=== PATIENT | female | born 1985 | race Caucasian/White ===

== ENCOUNTER 2021-03-14 16:55 | Emergency (ER) | payer MEDICAID ==
[~2021-03-14] VITALS: Ht 154.9 cm; Wt 101.2 kg
[2021-03-14 17:19] VITALS: BP 146/95
== END 2021-03-14 18:08 | disposition home or self-care (01) ==
LOC: MED 16:55
DX: Z20.1 Contact with and (suspected) exposure to tuberculosis (principal)
CPT/HCPCS: 71045; 99283; Q0092